=== PATIENT | male | born 1945 | race Caucasian/White ===

== ENCOUNTER 2018-05-12 11:42 | Emergency (ER) | payer OTHER ==
--- NOTE | 2018-05-12 13:42 | RAD REPORT ---
EXAM DESCRIPTION: CT - Head Brain Wo Cont - 05/12/2018 1:32 pm CLINICAL HISTORY: Headache COMPARISON: None. TECHNIQUE: Computed axial tomography of the head was obtained. IV contrast was not requested. All CT scans are performed using dose optimization technique as appropriate and may include automated exposure control or mA/KV adjustment according to patient size. FINDINGS: An intracranial bleed is not seen . Mild low-density areas within periventricular deep wh ite matter likely represent ischemic changes secondary to small vessel disease The ventricles are normal in caliber. No extra-axial fluid collection is noted. Fluid within the sinuses/ mastoids is not seen. Minimal mucoperiosteal thickening involves the spheno id sinus IMPRESSION: No acute intracranial abnormality is seen. If patient's symptoms persist MRI of the bra in would be recommended.
[2018-05-12] MEDS ORDERED: KETOROLAC 10 MG TAB PO ONE (14:00)
--- NOTE | 2018-05-12 15:10 | ER ---
Nurse's Notes [facility] Name: Louie Goss Age: 73 yrs Sex: Male : 1945 Arrival Date: 05/12/2018 Time: 11:43 Bed 12 Private MD: Diagnosis: Headache;Myalgia Presentation: 05/12 11:56 Presenting complaint: Patient states: i have this pain on my L ear for 3 days now and hj it hurts on my L head area and back of my ear and neck; and also my hearing aid broke down on me; denies ear discharges;denies trauma to the area. Transition of care: patient was not received from another setting of care. Onset of symptoms was May 12, 2018. Risk Assessment: Do you want to hurt yourself or someone else? Patient reports no desire to harm self or others. Initial Sepsis Screen: Does the patient meet any 2 criteria? No. Patient's initial sepsis screen is negative. Does the patient have a suspected source of infection? No. Patient's initial sepsis screen is negative. Care prior to arrival: None. 11:56 Method Of Arrival: Ambulatory 11:56 Acuity: DEVIN 4 hj Triage Assessment: 11:59 Headache History: Denies prior headaches. General: Appears in no apparent distress. hj uncomfortable, Behavior is calm, cooperative, appropriate for age. Pain: Complains of pain in left ear Pain currently is 10 out of 10 on a pain scale. Pain began 2-3 days ago. Also complains of. 12:00 Neuro: Level of Consciousness is awake, alert, obeys commands, Oriented to person, hj place, time, situation, Appropriate for age. Historical: - Allergies: 12:00 NKA; hj - Home Meds: 12:00 atenolol 100 mg Oral tab 1 tab once daily [Active]; clopidogrel 75 mg Oral tab 1 tab hj once daily [Active]; isosorbide mononitrate 60 mg Oral Tb24 1 tab once daily [Active]; Nexium 22.3MG Oral 1 cap once daily [Active]; pravastatin 40 mg Oral tab 1 tab once daily [Active]; - PMHx: 12:00 CAD; hj - PSHx: 12:00 Heart stents; Appendectomy; hj - Immunization history:: Adult Immunizations up to date. - Social history:: Smoking status: Patient/guardian denies using tobacco, Patient/guardian denies using alcohol. - Ebola Screening: : Patient negative for fever greater than or equal to 101.5 degrees Fahrenheit, and additional compatible Ebola Virus Disease symptoms Patient denies exposure to infectious person Patient denies travel to an Ebola-affected area in the 21 days before illness onset. Screenin:58 Abuse screen: Denies threats or abuse. Denies injuries from another. Nutritional hj screening: No deficits noted. Tuberculosis screening: No symptoms or risk factors identified. Fall Risk None identified. Assessment: 12:33 General: Appears in no apparent distress. Behavior is calm, cooperative. Pain: Pain hb currently is 10 out of 10 on a pain scale. Neuro: Level of Consciousness is awake, alert, obeys commands, Oriented to person, place, time, situation. Cardiovascular: Capillary refill < 3 seconds Patient's skin is warm and dry. Respiratory: Airway is patent Respiratory effort is even, unlabored, Respiratory pattern is regular, symmetrical. GI: No signs and/or symptoms were reported involving the gastrointestinal system. : No signs and/or symptoms were reported regarding the genitourinary system. EENT: Reports left ear pain. Derm: Skin is intact, is healthy with good turgor. Musculoskeletal: Reports left sided neck pain. 13:45 Reassessment: Patient appears in no apparent distress at this time. Patient and/or hb family updated on plan of care and expected duration. Pain level reassessed. Patient is alert, oriented x 3, equal unlabored respirations, skin warm/dry/pink. 14:45 Reassessment: Patient appears in no apparent distress at this time. No changes from hb previously documented assessment. Patient and/or family updated on plan of care and expected duration. Pain level reassessed. Patient is alert, oriented x 3, equal unlabored respirations, skin warm/dry/pink. 15:42 Reassessment: Patient appears in no apparent distress at this time. Patient and/or hb family updated on plan of care and expected duration. Pain level reassessed. Patient is alert, oriented x 3, equal unlabored respirations, skin warm/dry/pink. Vital Signs: 12:00 BP 142 / 72; Pulse 56; Resp 18; Temp 97.4(O); Pulse Ox 98% on R/A; Weight 111.58 kg; hj Height 5 ft. 10 in. (177.80 cm); Pain 10/10; 14:00 BP 136 / 76; Pulse 58; Resp 16; Pulse Ox 99% on R/A; hb 12:00 Body Mass Index 35.30 (111.58 kg, 177.80 cm) ED Course: 11:43 Patient arrived in ED. as 11:58 Triage completed. hj 11:59 Arm band placed on left wrist. hj 12:00 Patient has correct armband on for positive identification. Bed in low position. Call light in reach. Side rails up X 1. 12:01 Eduin Hawley, RN is Primary Nurse. hj 12:09 Luiz Casillas MD is Attending Physician. kdr 13:32 CT Head Brain wo Cont In Process Unspecified. EDMS 15:42 No provider procedures requiring assistance completed. Patient did not have IV access hb during this emergency room visit. Administered Medications: 13:25 Drug: TORadol 10 mg Route: PO; hb 15:42 Follow up: Response: Pain is decreased hb Outcome: 15:08 Discharge ordered by . kdr 15:42 Discharged to home ambulatory. hb 15:42 Condition: stable 15:42 Discharge instructions given to patient, Instructed on discharge instructions, follow up and referral plans. medication usage, Demonstrated understanding of instructions, follow-up care, medications, Prescriptions given X 3. 15:43 Patient left the ED. hb Signatures: Dispatcher [employer] EDID Luiz Casillas MD MD kdr Molly Glover as Eduin Hawley RN RN Dayanna Gonzalez RN RN hb Corrections: (The following items were deleted from the chart) 12:02 11:56 Presenting complaint: Patient states: i have this pain on my L ear for 3 days now hj and it hurts on my L head area and back of my ear and neck; and also my hearing broke down on me; denies ear discharges; hj 12:02 12:00 Pulse 56bpm; Resp 18bpm; Pulse Ox 98% RA; Temp 97.4F Oral; 111.58 kg; Height 5 hj ft. 10 in.; BMI: 35.3; Pain 10/10; hj
--- NOTE | 2018-05-12 15:10 | EDPHYS ---
Physician Documentation [facility] Name: Louie Goss Age: 73 yrs Sex: Male : 1945 Arrival Date: 05/12/2018 Time: 11:43 Bed 12 Private MD: ED Physician Luiz Casillas HPI: 05/12 15:02 This 73 yrs old Male presents to ER via Ambulatory with complaints of kdr Headache, Neck Pain, >24Hrs Old, Ear Pain. 15:02 The patient complains of pain to the left temporal area, left occipital area and left kdr base of the skull. The patient describes the headache as aching, constant, a pressure, unrelenting, waxing and waning. Onset: The symptoms/episode began/occurred gradually. 15:03 Associated signs and symptoms: The patient has no apparent associated signs or kdr symptoms. Severity of symptoms: At its worst the pain was moderate, in the emergency department the pain is unchanged. Headache History: Other Has not had a headache like this previously and it has been persistent. The symptoms are alleviated by nothing. the symptoms are aggravated by nothing. The patient has not experienced similar symptoms in the past, Has had very minor versions of this in the past nut not like this. The patient has not recently seen a physician. Historical: - Allergies: 12:00 NKA; hj - Home Meds: 12:00 atenolol 100 mg Oral tab 1 tab once daily [Active]; clopidogrel 75 mg Oral tab 1 tab hj once daily [Active]; isosorbide mononitrate 60 mg Oral Tb24 1 tab once daily [Active]; Nexium 22.3MG Oral 1 cap once daily [Active]; pravastatin 40 mg Oral tab 1 tab once daily [Active]; - PMHx: 12:00 CAD; hj - PSHx: 12:00 Heart stents; Appendectomy; hj - Immunization history:: Adult Immunizations up to date. - Social history:: Smoking status: Patient/guardian denies using tobacco, Patient/guardian denies using alcohol. - Ebola Screening: : Patient negative for fever greater than or equal to 101.5 degrees Fahrenheit, and additional compatible Ebola Virus Disease symptoms Patient denies exposure to infectious person Patient denies travel to an Ebola-affected area in the 21 days before illness onset. ROS: 15:03 Constitutional: Negative for fever, chills, and weight loss, Eyes: Negative for injury, kdr pain, redness, and discharge, ENT: Negative for injury, pain, and discharge, Neck: Negative for injury, pain, and swelling, Cardiovascular: Negative for chest pain, palpitations, and edema, Respiratory: Negative for shortness of breath, cough, wheezing, and pleuritic chest pain, Abdomen/GI: Negative for abdominal pain, nausea, vomiting, diarrhea, and constipation, Back: Negative for injury and pain, : Negative for injury, bleeding, discharge, and swelling, MS/Extremity: Negative for injury and deformity, Skin: Negative for injury, rash, and discoloration, Psych: Negative for depression, anxiety, suicide ideation, homicidal ideation, and hallucinations, Allergy/Immunology: Negative for hives, rash, and allergies, Endocrine: Negative for neck swelling, polydipsia, polyuria, polyphagia, and marked weight changes, Hematologic/Lymphatic: Negative for swollen nodes, abnormal bleeding, and unusual bruising. 15:03 Neuro: Positive for headache, Negative for altered mental status, dizziness, gait disturbance, numbness, seizure activity, speech changes, syncope, near syncope, tingling, tinnitus, tremor, visual changes, weakness, acute changes. Exam: 15:03 Constitutional: This is a well developed, well nourished patient who is awake, alert, kdr and in no acute distress. Head/Face: Normocephalic, atraumatic. Eyes: Pupils equal round and reactive to light, extra-ocular motions intact. Lids and lashes normal. Conjunctiva and sclera are non-icteric and not injected. Cornea within normal limits. Periorbital areas with no swelling, redness, or edema. ENT: Nares patent. No nasal discharge, no septal abnormalities noted. Tympanic membranes are normal and external auditory canals are clear. Oropharynx with no redness, swelling, or masses, exudates, or evidence of obstruction, uvula midline. Mucous membranes moist. Neck: Trachea midline, no thyromegaly or masses palpated, and no cervical lymphadenopathy. Supple, full range of motion without nuchal rigidity, or vertebral point tenderness. No Meningismus. Chest/axilla: Normal chest wall appearance and motion. Nontender with no deformity. No lesions are appreciated. Cardiovascular: Regular rate and rhythm with a normal S1 and S2. No gallops, murmurs, or rubs. Normal PMI, no JVD. No pulse deficits. Respiratory: Lungs have equal breath sounds bilaterally, clear to auscultation and percussion. No rales, rhonchi or wheezes noted. No increased work of breathing, no retractions or nasal flaring. Abdomen/GI: Soft, non-tender, with normal bowel sounds. No distension or tympany. No guarding or rebound. No evidence of tenderness throughout. Back: No spinal tenderness. No costovertebral tenderness. Full range of motion. Skin: Warm, dry with normal turgor. Normal color with no rashes, no lesions, and no evidence of cellulitis. MS/ Extremity: Pulses equal, no cyanosis. Neurovascular intact. Full, normal range of motion. Psych: Awake, alert, with orientation to person, place and time. Behavior, mood, and affect are within normal limits. 15:03 Neuro: Orientation: is normal, Mentation: is normal, Memory: is normal, Cranial nerves: grossly normal, Cerebellar function: is grossly normal, Motor: is normal, Sensation: is normal, Gait: not applicable Deep tendon reflexes are normal. Vital Signs: 12:00 BP 142 / 72; Pulse 56; Resp 18; Temp 97.4(O); Pulse Ox 98% on R/A; Weight 111.58 kg; Height 5 ft. 10 in. (177.80 cm); Pain 10/10; 14:00 BP 136 / 76; Pulse 58; Resp 16; Pulse Ox 99% on R/A; hb 12:00 Body Mass Index 35.30 (111.58 kg, 177.80 cm) MDM: 15:03 Data reviewed: vital signs, nurses notes, lab test result(s), radiologic studies. kdr Counseling: I had a detailed discussion with the patient and/or guardian regarding: the historical points, exam findings, and any diagnostic results supporting the discharge/admit diagnosis, radiology results. 15:08 Patient medically screened. kdr 05/12 12:59 Order name: CT Head Brain wo Cont; Complete Time: 15:02 kdr Administered Medications: 13:25 Drug: TORadol 10 mg Route: PO; hb 15:42 Follow up: Response: Pain is decreased hb Disposition: 05/12/18 15:08 Discharged to Home. Impression: Headache, Myalgia. - Condition is Stable. - Discharge Instructions: General Headache Without Cause, Pain Without a Known Cause. - Prescriptions for Ibuprofen 600 mg Oral Tablet - take 1 tablet by ORAL route every 6 hours As needed take with food; 15 tablet. Neurontin 300 mg Oral Capsule - take 1 capsule by ORAL route every 8 hours; 15 capsule. Medrol (Jer) 4 mg Oral Tablets, Dose Pack - take 1 tablet by ORAL route as directed - follow package instructions; 1 packet. - Medication Reconciliation Form, Thank You Letter form. - Follow up: Private Physician; When: 2 - 3 days; Reason: If symptoms return, Further diagnostic work-up, Recheck today's complaints, Continuance of care, Re-evaluation by your physician. - Problem is new. - Symptoms have improved. Signatures: Dispatcher [employer] EDMS Luiz Casillas MD MD [facility] Eduin Hawley RN RN Dayanna Gonzalez RN RN hb Corrections: (The following items were deleted from the chart) 15:43 15:08 05/12/2018 15:08 Discharged to Home. Impression: Headache; Myalgia. Condition is hb Stable. Forms are Medication Reconciliation Form, Thank You Letter, Antibiotic Education, Prescription Opioid Use. Follow up: Private Physician; When: 2 - 3 days; Reason: If symptoms return, Further diagnostic work-up, Recheck today's complaints, Continuance of care, Re-evaluation by your physician. Problem is new. Symptoms have improved. kdr
[2018-05-12 15:46] VITALS: TEMP 97.4
[2018-05-12 15:47] VITALS: BP 136/76; O2SAT 99
== END 2018-05-12 15:43 | disposition home or self-care (01) ==
LOC: ER 11:42
DX: R51 Headache (principal); M79.10 Myalgia, unspecified site; I25.10 Atherosclerotic heart disease of native coronary artery without angina pectoris
CPT/HCPCS: 70450; 99283

== ENCOUNTER 2018-05-26 10:03 | Inpatient (IN) | payer OTHER ==
[2018-05-26 10:51] LABS: Absolute Lymphocytes (CBC) 1.7 K/uL (0.7-4.9); Absolute Monocytes 1.3 K/uL (0.1-1.3); Absolute Neutrophil 7.5 K/uL (1.8-8.0); Basophils % 0.4 % (0-1.3); Eosinophils % 1.1 % (0-4.4); Hematocrit 49.5 % (39.6-49.0); Lymphocytes % 15.6 % (15.3-44.8); MPV 10.2 fL (7.6-11.3); Monocytes % 11.9 % (3.3-12.3); RBC Red Blood Cell Count 5.56 M/uL (4.33-5.43)
[2018-05-26 10:57] LABS: Protime INR 1.19
--- NOTE | 2018-05-26 10:59 | RAD REPORT ---
EXAM DESCRIPTION: CT - Head Brain Wo Cont - 05/26/2018 10:47 am CLINICAL HISTORY: Dizziness COMPARISON: May 12, 2018 TECHNIQUE: Computed axial tomography of the head was obtained. IV contrast was not requested. All CT scans are performed using dose optimization technique as appropriate and may include automated exposure control or mA/KV adjustment according to patient size. FINDINGS: An intracranial bleed is not seen . The ventricles are normal in caliber. No extra-axial fluid collection is noted. Mild to moderate low-density within periventricular, deep a nd subcortical white matter likely ischemic changes secondary to small vessel disease Fluid within the sinuses/ mastoids is not seen. IMPRESSION: No acute intracranial abnormality is seen. If patient's symptoms persist MRI of the bra in would be recommended.
--- NOTE | 2018-05-26 11:07 | RAD REPORT ---
EXAM DESCRIPTION: Vero Single View05/26/2018 11:01 am CLINICAL HISTORY: Chest pain COMPARISON: April 2017 FINDINGS: The lungs appear clear of acute infiltrate. The heart is mildly enlarged. Postsurgical changes involve the chest. IMPRESSION: No acute abnormalities displayed
[2018-05-26 11:52] LABS: ALT/SGPT 33 U/L (12-78); AST/SGOT 19 U/L (15-37); Albumin 3.7 g/dL (3.4-5.0); Alkaline Phosphatase 77 U/L (45-117); BUN Blood Urea Nitrogen 17 mg/dL (7-18); Bicarbonate 25 mmol/L (21-32); Bilirubin Direct 0.2 mg/dL (0-0.2); Bilirubin Total 0.9 mg/dL (0.2-1.0); Glucose Level 99 mg/dL (74-106); NT PRO-BNP 40 pg/mL (<125); Potassium 4.1 mmol/L (3.5-5.1); Protein, Total 7.4 g/dL (6.4-8.2); Sodium Level 139 mmol/L (136-145); Troponin (Emerg Dept Use Only) < 0.02 ng/mL (0.0-0.045)
--- NOTE | 2018-05-26 14:39 | RAD REPORT ---
EXAM DESCRIPTION: MRI - Brain Wo Cont - 05/26/2018 2:00 pm CLINICAL HISTORY: Weakness, dizziness, syncope COMPARISON: CT head same date TECHNIQUE: Sagittal T1-weighted images were obtained along with axial PD, heavily T2-weighted and T2 -FLAIR images. Axial DWI and ADC mapping sequences were also obtained along with coronal heavily T2-w eighted images. FINDINGS: No intracranial hemorrhage is present. No acute infarction changes are seen. No edema or s hift of midline structures. Mild to moderate atrophy changes are present. Ventriculomegaly is present with ventricles appearing out of proportion to the amount of volume loss. Correlation can be made wi th any normal pressure hydrocephalus clinical findings. Patient has chronic ischemic change scattered in the cerebral white matter and minimally in the brainstem. Garcia-matter/white matter junction is pr eserved. Signal voids are seen as a normal finding in the major intracranial vessels. A 15 millimeter mass is present at the left cerebellopontine angle. This is isointense to brain on T1 imaging, intermediate signal intensity on heavily T2 weighted imaging and hyperintense on T2 FLAIR. Signal extends into the internal auditory canal. Finding may reflect an acoustic neuroma or possibly meningioma. These are the 2 most common CP angle masses. No fatty components evident. Mastoid air cells and paranasal sinuses are clear. IMPRESSION: No acute infarction changes are present. No hemorrhage or acute intracranial finding. Ventriculomegaly out of proportion to volume loss. Correlation is needed with any normal pressure hyd rocephalus exam findings. 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
--- NOTE | 2018-05-26 16:17 | ER ---
Nurse's Notes [facility] Name: Louie Goss Age: 73 yrs Sex: Male : 1945 Arrival Date: 05/26/2018 Time: 10:05 Bed 18 Private MD: Diagnosis: Chest pain, unspecified Presentation: 05/26 10:08 Presenting complaint: Patient states: i got dizzy and i cant hardly walk, this has been hj going on for weeks, today, i started having chest pain, sharp non radiating, reports SOB;. Transition of care: patient was not received from another setting of care. Onset of symptoms was May 26, 2018. Risk Assessment: Do you want to hurt yourself or someone else? Patient reports no desire to harm self or others. Initial Sepsis Screen: Does the patient meet any 2 criteria? No. Patient's initial sepsis screen is negative. Does the patient have a suspected source of infection? No. Patient's initial sepsis screen is negative. Care prior to arrival: None. 10:08 Method Of Arrival: Ambulatory 10:08 Acuity: DEVIN 3 hj Historical: - Allergies: 10:10 NKA; hj - Home Meds: 11:14 pravastatin 40 mg Oral tab 1 tab once daily [Active]; isosorbide mononitrate 60 mg Oral em Tb24 1 tab once daily [Active]; atenolol 100 mg Oral tab 1 tab once daily [Active]; clopidogrel 75 mg Oral tab 1 tab once daily [Active]; Protonix 40 mg Oral TbEC 1 tab once daily [Active]; gabapentin 300 mg oral cap 1 cap 3 times per day [Active]; - PMHx: 10:10 CAD; hj - PSHx: 10:10 Heart stents; Appendectomy; hj - Immunization history:: Adult Immunizations up to date. - Social history:: Smoking status: unknown. - Ebola Screening: : Patient negative for fever greater than or equal to 101.5 degrees Fahrenheit, and additional compatible Ebola Virus Disease symptoms Patient denies exposure to infectious person Patient denies travel to an Ebola-affected area in the 21 days before illness onset No symptoms or risks identified at this time. Screenin:20 Abuse screen: Denies threats or abuse. Nutritional screening: No deficits noted. em Tuberculosis screening: No symptoms or risk factors identified. Fall Risk None identified. Assessment: 10:11 Pain: Pain does not radiate. Pain began today. hj 10:20 General: Appears in no apparent distress. comfortable, Behavior is calm, cooperative, em Denies fever. Neuro: Level of Consciousness is awake, alert, obeys commands, Overhead Crane Inspector are equal bilaterally Moves all extremities. Speech is normal, Reports dizziness, since about 1 month weakness Denies paresthesias numbness headache. Cardiovascular: Heart tones S1 S2 present Capillary refill < 3 seconds Patient's skin is warm and dry. Respiratory: Airway is patent Respiratory effort is even, unlabored, Respiratory pattern is regular, symmetrical, Breath sounds are clear bilaterally. Denies cough. GI: Patient currently denies nausea, vomiting. Derm: Skin is intact, is healthy with good turgor, Skin is pink, warm \T\ dry. Musculoskeletal: Capillary refill < 3 seconds, Range of motion: intact in all extremities. 10:35 Reassessment: I agree with previous assessment. hb 12:00 Reassessment: Patient appears in no apparent distress at this time. Patient and/or em family updated on plan of care and expected duration. Pain level reassessed. Patient is alert, oriented x 3, equal unlabored respirations, skin warm/dry/pink. family at bedside. 13:30 Reassessment: Patient appears in no apparent distress at this time. Patient and/or em family updated on plan of care and expected duration. Pain level reassessed. Patient is alert, oriented x 3, equal unlabored respirations, skin warm/dry/pink. wheeled to CT. 14:12 Reassessment: Patient appears in no apparent distress at this time. Patient and/or em family updated on plan of care and expected duration. Pain level reassessed. Patient is alert, oriented x 3, equal unlabored respirations, skin warm/dry/pink. Patient states feeling better. Patient states symptoms have improved. 16:38 Reassessment: Patient appears in no apparent distress at this time. Patient and/or iw family updated on plan of care and expected duration. Pain level reassessed. Patient is alert, oriented x 3, equal unlabored respirations, skin warm/dry/pink. warm blankets given, call light within reach, awaiting room assignment. 17:40 Reassessment: Patient appears in no apparent distress at this time. ambulated to em restroom with assistance, shuffling gate noted, tolerated well pending room assignment. Vital Signs: 10:10 BP 130 / 87; Pulse 84; Resp 18; Temp 98.2(TE); Pulse Ox 95% on R/A; Weight 113.4 kg; hj Height 5 ft. 10 in. (177.80 cm); 12:21 BP 156 / 93; Pulse 81; Resp 18; Pulse Ox 99% on R/A; em 13:00 BP 155 / 94; Pulse 81; Resp 20; Pulse Ox 97% on R/A; em 14:15 BP 153 / 91; Pulse 71; Resp 18; Pulse Ox 95% on R/A; em 15:00 BP 144 / 82; Pulse 75; Resp 17; Pulse Ox 95% on R/A; dh3 16:00 BP 165 / 97; Pulse 76; Resp 17; Pulse Ox 96% on R/A; dh3 17:00 BP 141 / 71; Pulse 87; Resp 18; Pulse Ox 97% on R/A; dh3 18:07 BP 132 / 85; Pulse 88; Resp 18; Pulse Ox 95% on R/A; em 10:10 Body Mass Index 35.87 (113.40 kg, 177.80 cm) ED Course: 10:05 Patient arrived in ED. as 10:09 Triage completed. hj 10:10 Arm band placed on right wrist. hj 10:17 Ward Negro LVN is Primary Nurse. em 10:18 Efrain Vogel PA is PHCP. [facility] 10:18 Luiz Casillas MD is Attending Physician. [facility] 10:20 Patient has correct armband on for positive identification. Placed in gown. Bed in low em position. Call light in reach. Side rails up X2. Adult w/ patient. monitor worker on. Pulse ox on. NIBP on. 10:24 EKG done, by experimental technician. reviewed by Luiz Casillas MD. dt2 10:25 Patient maintains SpO2 saturation greater than 95% on room air. em 10:27 Inserted saline lock: 20 gauge in right hand, using aseptic technique. Blood collected. dh3 10:37 Patient moved to MS. sj 10:38 Initial lab(s) drawn, by ma, sent to lab. 3 10:47 CT completed. Patient tolerated procedure well. Patient moved back from MS. nj 10:47 CT Head Brain wo Cont In Process Unspecified. EDMS 11:00 X-ray completed. Portable x-ray completed in exam room. Patient tolerated procedure jb2 well. 11:01 XRAY Chest (1 view) In Process Unspecified. EDMS 11:24 Lab(s) recollected, by me, sent to lab. by venipuncture 21G to left hand. 3 13:48 MRI - Brain Wo Cont In Process Unspecified. EDMS 16:16 Saji Diaz DO is Hospitalizing Provider. [facility] 18:15 No provider procedures requiring assistance completed. Patient admitted, IV remains in em place. Administered Medications: 16:30 Drug: Aspirin Chewable Tablet 324 mg Route: PO; iw 18:13 Follow up: Response: No adverse reaction em Outcome: 16:17 Decision to Hospitalize by Provider. [facility] 18:15 Admitted to Med/surg accompanied by tech, via wheelchair, room 217, with chart, Report em called to ROSA Mckeon 18:15 Condition: good 18:15 Instructed on the need for admit, Demonstrated understanding of instructions. 18:35 Patient left the ED. em Signatures: Dispatcher [employer] EDMS Efrain Vogel PA PA [facility] Leonel Cm jb2 Sarai Jordan Edgar, IN SHOP SERVICE TECHNICIAN IN SHOP SERVICE TECHNICIAN em Molly Glover Irene, RN ROSA Eduin Hawley RN ROSA Dayanna Gonzalez, ROSA LEE Amador Posey Deanna 3 Jennifer Barroso2 Corrections: (The following items were deleted from the chart) 10:12 10:10 Pulse 84bpm; Resp 18bpm; Pulse Ox 95% RA; Temp 98.2F Temporal; 113.4 kg; Height 5 hj ft. 10 in.; BMI: 35.8; hj
--- NOTE | 2018-05-26 16:17 | EDPHYS ---
Physician Documentation [facility] Name: Louie Goss Age: 73 yrs Sex: Male : 1945 Arrival Date: 05/26/2018 Time: 10:05 Bed 18 Private MD: ED Physician Luiz Casillas HPI: 05/26 10:34 This 73 yrs old Male presents to ER via Ambulatory with complaints of Chest jmm Pain, Dizziness. 10:34 The patient or guardian reports chest pain that is located primarily in the substernal jmm area. Onset: gradually, at 08:00. The pain does not radiate. Associated signs and symptoms: Pertinent positives: dizziness. The chest pain is described as aching, sharp. Duration: The patient or guardian reports a single episode, that is now resolved. Modifying factors: the symptoms are aggravated by exertion. This is a 73 year old male with a history of CAD, DM that presents to the ED with complaints chest pain beginning this morning at approx 0800. Pain was localized to the mid chest. Does not radiate. Pain is exertional. Patient is now resolved. Family states the patient has had ongoing dizziness for the past month worsening over the past 2 days with difficulty walking. family denies slurred speech. Denies unilateral weakness. . Historical: - Allergies: 10:10 NKA; hj - Home Meds: 11:14 pravastatin 40 mg Oral tab 1 tab once daily [Active]; isosorbide mononitrate 60 mg Oral em Tb24 1 tab once daily [Active]; atenolol 100 mg Oral tab 1 tab once daily [Active]; clopidogrel 75 mg Oral tab 1 tab once daily [Active]; Protonix 40 mg Oral TbEC 1 tab once daily [Active]; gabapentin 300 mg oral cap 1 cap 3 times per day [Active]; - PMHx: 10:10 CAD; hj - PSHx: 10:10 Heart stents; Appendectomy; hj - Immunization history:: Adult Immunizations up to date. - Social history:: Smoking status: unknown. - Ebola Screening: : Patient negative for fever greater than or equal to 101.5 degrees Fahrenheit, and additional compatible Ebola Virus Disease symptoms Patient denies exposure to infectious person Patient denies travel to an Ebola-affected area in the 21 days before illness onset No symptoms or risks identified at this time. ROS: 10:34 Constitutional: Negative for fever, chills, and weight loss. [facility] 10:34 Respiratory: Negative for shortness of breath, cough, wheezing, and pleuritic chest pain, Abdomen/GI: Negative for abdominal pain, nausea, vomiting, diarrhea, and constipation, Back: Negative for injury and pain, MS/Extremity: Negative for injury and deformity, Skin: Negative for injury, rash, and discoloration. 10:34 Cardiovascular: Positive for chest pain. 10:34 Neuro: Positive for dizziness. 10:34 All other systems are negative. Exam: 10:34 Constitutional: This is a well developed, well nourished patient who is awake, alert, jmm and in no acute distress. Head/Face: atraumatic. Eyes: EOMI, no conjunctival erythema appreciated ENT: Moist Mucus Membranes Neck: Trachea midline, Supple Chest/axilla: Normal chest wall appearance and motion. Cardiovascular: Regular rate and rhythm. No edema appreciated Respiratory: Normal respirations, no respiratory distress appreciated Abdomen/GI: Non distended, soft Skin: General appearance color normal MS/ Extremity: Moves all extremities, no obvious deformities appreciated, no edema noted to the lower extremities Neuro: Awake and alert, normal gait Psych: Behavior is normal, Mood is normal, Patient is cooperative and pleasant 10:34 Neuro: Orientation: is normal, Mentation: is normal, Memory: is normal. 14:27 ECG was reviewed by the Attending Physician. [facility] Vital Signs: 10:10 BP 130 / 87; Pulse 84; Resp 18; Temp 98.2(TE); Pulse Ox 95% on R/A; Weight 113.4 kg; hj Height 5 ft. 10 in. (177.80 cm); 12:21 BP 156 / 93; Pulse 81; Resp 18; Pulse Ox 99% on R/A; em 13:00 BP 155 / 94; Pulse 81; Resp 20; Pulse Ox 97% on R/A; em 14:15 BP 153 / 91; Pulse 71; Resp 18; Pulse Ox 95% on R/A; em 15:00 BP 144 / 82; Pulse 75; Resp 17; Pulse Ox 95% on R/A; dh3 16:00 BP 165 / 97; Pulse 76; Resp 17; Pulse Ox 96% on R/A; dh3 17:00 BP 141 / 71; Pulse 87; Resp 18; Pulse Ox 97% on R/A; dh3 18:07 BP 132 / 85; Pulse 88; Resp 18; Pulse Ox 95% on R/A; em 10:10 Body Mass Index 35.87 (113.40 kg, 177.80 cm) MDM: 10:34 Patient medically screened. [facility] 16:14 The patient was given aspirin in the Emergency Department. Data reviewed: vital signs, [facility] lab test result(s), EKG, radiologic studies, CT scan, MRI, plain films. ED course: I discussed the patient with Dr. Diaz whom accepted admission. . 05/26 10:33 Order name: Basic Metabolic Panel; Complete Time: 11:58 05/26 10:33 Order name: CBC with Diff; Complete Time: 10:58 05/26 10:33 Order name: LFT's; Complete Time: 11:59 05/26 10:33 Order name: Magnesium; Complete Time: 11:59 05/26 10:33 Order name: NT PRO-BNP; Complete Time: 11:59 05/26 10:33 Order name: PT-INR; Complete Time: 11:01 05/26 10:12 Order name: EKG - Nurse/Tech; Complete Time: 10:30 05/26 10:33 Order name: Troponin (emerg Dept Use Only); Complete Time: 11:59 05/26 10:33 Order name: XRAY Chest (1 view); Complete Time: 11:10 05/26 10:33 Order name: EKG; Complete Time: 10:34 05/26 10:35 Order name: CT Head Brain wo Cont; Complete Time: 11:01 [facility] 05/26 12:06 Order name: MRI - Brain Wo Cont; Complete Time: 14:45 [facility] 05/26 15:55 Order name: Diet Mech. Soft (chopped); Complete Time: 15:55 05/26 10:33 Order name: Cardiac monitoring; Complete Time: 10:43 05/26 10:33 Order name: IV Saline Lock; Complete Time: 10:43 05/26 10:33 Order name: Labs collected and sent; Complete Time: 10:43 05/26 10:33 Order name: O2 Per Protocol; Complete Time: 10:43 05/26 10:33 Order name: O2 Sat Monitoring; Complete Time: 10:43 em 05/26 11:01 Order name: Labs - recollect needed; Complete Time: 11:24 hb EC:27 Rate is 83 beats/min. Rhythm is regular. QRS [place] is Normal. CO interval is normal. QRS jmm interval is normal. QT interval is normal. No Q waves. T waves are Normal. No ST changes noted. Administered Medications: 16:30 Drug: Aspirin Chewable Tablet 324 mg Route: PO; 18:13 Follow up: Response: No adverse reaction em Disposition: 18:45 Co-signature as Attending Physician, Luiz Casillas MD I agree with the assessment and kdr plan of care. Disposition: 05/26/18 16:17 Hospitalization ordered by Saji Diaz for Observation. Preliminary diagnosis is Chest pain, unspecified. - Bed requested for Telemetry/MedSurg (observation). - Status is Observation. em - Condition is Stable. - Problem is new. - Symptoms have improved. UTI on Admission? No Signatures: Dispatcher [employer] EDMS Luiz Casillas MD MD [facility] Efrain Vogel PA PA [facility] Ward Negro, AIR CONDITIONING MANAGER AIR CONDITIONING MANAGER em Kay Wallis, ROSA LEE Bill Glover em1 Eduin Hawley, RN ROSA Dayanna Gonzalez, RN RN Corrections: (The following items were deleted from the chart) 18:00 16:17 Hospitalization Ordered by Saji Diaz DO for Observation. Preliminary em1 diagnosis is Chest pain, unspecified. Bed requested for Telemetry/MedSurg (observation). Status is Observation. Condition is Stable. Problem is new. Symptoms have improved. UTI on Admission? No. jmm 18:35 18:00 05/26/2018 16:17 Hospitalization Ordered by Saji Diaz DO for Observation. em Preliminary diagnosis is Chest pain, unspecified. Bed requested for Telemetry/MedSurg (observation). Status is Observation. Condition is Stable. Problem is new. Symptoms have improved. UTI on Admission? No. em1
[2018-05-26] MEDS ORDERED: ASPIRIN 81 MG CHEWABLE TABLET ONE (16:28)
--- NOTE | 2018-05-26 16:58 | P.HP ---
Certification for Inpatient Patient admitted to: Observation With expected LOS: <2 Midnights Patient will require the following post-hospital care: Home Health Services Practitioner: I am a practitioner with admitting privileges, knowledge of patient current condition, hospital course, and medical plan of care. Services: Services provided to patient in accordance with Admission requirements found in Title 42 Section 412.3 of the Code of Federal Regulations Patient History Date of Service: 05/26/18 Primary Care Provider: [facility] Reason for admission: Chest pain History of Present Illness: 73-year-old male presented to the emergency room with chest pain. Patient with history of CAD with prior CABG, hypertension, hyperlipidemia, and obstructive sleep apnea. Patient reports chest pain starting at rest and early this morning. It was mainly to the center of the chest. No radiation noted. He has reported some dizziness over the past month. He did have some difficulty with ambulation today. Patient denied any significant nausea, vomiting, fever or chills. Patient came to the ER for further evaluation. In the ER patient evaluated. Blood pressures were slightly elevated upon arrival. White count 10.6, hemoglobin 16. Creatinine 0.9. Initial troponin unremarkable. No significant EKG changes noted. Chest x-ray unremarkable. CT scan showed no acute findings. MRI brain showed no acute findings but ventriculomegaly out of proportion to volume loss was noted. There was also a 15 mm left cerebellopontine mass likely acoustic neuroma or possible meningioma noted. Patient was admitted for observation. When I saw the patient ER, he was without any significant chest pain. Family at bedside. He last saw cardiology about a month ago in preparation for oral surgery. He was off Plavix 2 weeks prior to surgery. He is not taking Plavix since that time. Allergies No Known Allergies Allergy (Verified 04/24/15 10:16) Home medications list reviewed: Yes Home Medications: Atenolol [Tenormin*] 100 mg PO DAILY 08/18/13 Clopidogrel Bisulfate [Plavix*] 75 mg PO DAILY 08/18/13 Isosorbide King (Bid) [Ismo 10 mg Tab*] 60 mg PO DAILY 08/18/13 Pravastatin [Pravachol*] 40 mg PO DAILY 08/18/13 Pantoprazole Sodium [Protonix] 40 mg PO DAILY #30 tablet. 04/25/15 - Past Medical/Surgical History Diabetic: No -: HTN -: Hyperlipidmeia -: CAD with prior CABG -: Thoracic Myofascial Strain- 03/19/13 -: Restless leg syndrome -: Sleep Apnea-uses CPAP at home. -: CABG-1999 -: Cardiac stents Psychosocial/ Personal History: Patient is a - Family History Family History: Reviewed- Non-Contributory - Social History Smoking Status: Former smoker Alcohol use: No CD- Drugs: No Caffeine use: Yes Place of Residence: Home Review of Systems General: Weakness, As per HPI Eyes: Unremarkable ENT: Unremarkable Respiratory: Unremarkable Cardiovascular: Chest Pain, Light Headedness, As per HPI Gastrointestinal: Unremarkable Genitourinary: Unremarkable Musculoskeletal: Unremarkable Integumentary: Unremarkable Neurological: Weakness, As per HPI Lymphatics: Unremarkable Physical Examination - Physical Exam General: Alert, In no apparent distress, Oriented x3, Cooperative HEENT: Atraumatic, Normocephalic, Mucous membr. moist/pink Neck: Supple, No Thyromegaly Respiratory: Clear to auscultation bilaterally, Normal air movement Cardiovascular: Normal pulses, Regular rate/rhythm Gastrointestinal: Normal bowel sounds, Soft and benign, Non-distended, No tenderness, No masses, No rebound, No guarding Musculoskeletal: No erythema, No tenderness, No warmth Integumentary: No tenderness/swelling, No erythema, No warmth, No cyanosis Neurological: Normal speech, Normal strength at 5/5 x4 extr, Normal tone, Normal affect - Studies Laboratory Data (last 24 hrs) 05/26/18 11:21: Sodium 139, Potassium 4.1, BUN 17, Creatinine 0.99, Glucose 99, Magnesium 2.0, Total Bilirubin 0.9, AST 19, ALT 33, Alkaline Phosphatase 77 05/26/18 10:27: PT 14.0 H, INR 1.19 05/26/18 10:27: WBC 10.6, Hgb 16.8, Hct 49.5 H, Plt Count 194 Assessment and Plan - Plan Impression: Chest pain with history of CAD and CABG Hypertension Dizziness likely related to MRI showing ventriculomegaly and 15 mm left cerebellopontine mass likely acoustic neuroma verses meningioma Hyperlipidemia Obstructive sleep apnea Recent oral surgery GERD Plan: Chest pain with history of CAD and CABG: Patient will be admitted for observation. Will continue to monitor on telemetry. Will monitor cardiac enzymes. Will obtain echocardiogram to further evaluate. Will restart his Plavix as this has been held for several weeks. Will continue with beta- baron therapy, statin medication and DVT prophylaxis. Cardiology consulted for further recommendation. Anticipate discharge in the next 24 hr if improved and okay with cardiology. Hypertension: Will start metoprolol. Will need to obtain and verify home medication. Dizziness likely related to MRI showing ventriculomegaly and 15 mm left cerebellopontine mass likely acoustic neuroma verses meningioma: This is a new finding. Recommend for neurology evaluation as an outpatient to further monitor and address. Patient may require further intervention Hyperlipidemia: Continue with statin medication. Will monitor fasting lipid panel. Obstructive sleep apnea: Continue with CPAP at night. Recent oral surgery: Will continue with a soft diet GERD: Will provide medication Discharge Plan: Home Plan to discharge in: 24 Hours - Advance Directives Does patient have a Living Will: Yes Does patient have a Durable POA for Healthcare: Yes - Code Status/Comfort Care Code Status Assessed: Yes (Patient is full code.) Time Spent Managing Pts Care (In Minutes): 55
[2018-05-26] MEDS ORDERED: MORPHINE 2 MG/ML SYR IV PRN (18:32)
[2018-05-26] MEDS ORDERED: NITROGLYCERIN 0.4 MG/TAB SL PRN (18:32)
[2018-05-26] MEDS ORDERED: ACETAMINOPHEN 500 MG TAB PO PRN (18:32)
[2018-05-26] MEDS ORDERED: HYDRALAZINE HCL 20 MG/ML VIAL IV PRN (18:32)
[2018-05-26 18:43] VITALS: BMI 32.1
[2018-05-26] MEDS: METOPROLOL TAR 25 MG TAB PO SCH (19:18)
[2018-05-26 19:42] LABS: CKMB Creatine Kinase MB < 1.0 ng/mL (0.3-3.6); Creatine Phosphokinase 52 U/L (39-308); Troponin I < 0.02 ng/mL (0.0-0.045)
[2018-05-26] MEDS ORDERED: ATORVASTATIN 40 MG TAB PO SCH (21:00)
[2018-05-26 21:21] LABS: Urine Appearance CLEAR; Urine Bilirubin NEGATIVE (NEG); Urine Blood NEGATIVE (NEG); Urine Color YELLOW; Urine Glucose NEGATIVE (NEG); Urine Protein TRACE (NEG); Urine Specific Gravity 1.025 (1.005-1.030); Urine pH 5.5 (5.0-7.0)
[2018-05-26 21:33] LABS: Urine Microscopic Reflex ORDER UMIC
[2018-05-26 22:02] LABS: Urine Bacteria <20 /HPF (NONE SEEN); Urine Culture Reflex Order NOT NEEDED; Urine Mucus HEAVY /HPF (NONE SEEN); Urine RBC <5 /HPF (NONE SEEN)
[2018-05-26] MEDS: ENOXAPARIN 40 MG/0.4 ML SQ SCH (22:33)
[2018-05-27 04:43] LABS: Absolute Lymphocytes (CBC) 1.5 K/uL (0.7-4.9); Absolute Monocytes 1.2 K/uL (0.1-1.3); Absolute Neutrophil 6.9 K/uL (1.8-8.0); Basophils % 0.2 % (0-1.3); Eosinophils % 1.6 % (0-4.4); Hematocrit 44.3 % (39.6-49.0); Lymphocytes % 15.6 % (15.3-44.8); MPV 9.5 fL (7.6-11.3); Monocytes % 12.3 % (3.3-12.3); RBC Red Blood Cell Count 4.96 M/uL (4.33-5.43)
[2018-05-27 04:56] LABS: CKMB Creatine Kinase MB < 1.0 ng/mL (0.3-3.6); Creatine Phosphokinase 49 U/L (39-308); Troponin I < 0.02 ng/mL (0.0-0.045)
[2018-05-27 05:16] LABS: Magnesium 1.9 mg/dL (1.8-2.4); Potassium 3.8 mmol/L (3.5-5.1)
[2018-05-27 05:22] LABS: Thyroid Stimulating Hormone 4.15 uIU/mL (0.360-3.740)
[2018-05-27] MEDS ORDERED: POTASSIUM 25 MEQ EFFERV TAB PO ONE (05:28)
[2018-05-27] MEDS ORDERED: PNEUMOCOCCAL VACCINE 0.5 ML IMVAC ONE (06:00)
[2018-05-27] MEDS: METOPROLOL TAR 25 MG TAB PO SCH (06:13)
[2018-05-27 08:43] VITALS: O2SAT 94
[2018-05-27] MEDS: ENOXAPARIN 40 MG/0.4 ML SQ SCH (08:46)
[2018-05-27] MEDS ORDERED: FAMOTIDINE 20 MG TAB PO SCH (09:00)
[2018-05-27] MEDS ORDERED: FOLIC ACID 1 MG TABLET PO SCH (09:00)
[2018-05-27] MEDS ORDERED: CLOPIDOGREL 75 MG TABLET PO SCH (09:00)
--- NOTE | 2018-05-27 09:26 | P.PN ---
Subjective Date of Service: 05/27/18 Primary Care Provider: [facility] Chief Complaint: Chest pain Subjective: Other (No more chest pain noted. Patient still with gait and balance and shuffled gait. No noted incontinence. No decreased mental cognition.) Physical Examination - Vital Signs Temperature: 97.5 F Blood Pressure: 136/84 Pulse: 72 Respirations: 20 Pulse Ox (%): 93 - Physical Exam General: Alert, In no apparent distress, Oriented x3, Cooperative HEENT: Atraumatic Neck: Supple Respiratory: Clear to auscultation bilaterally, Normal air movement Cardiovascular: Normal pulses, Regular rate/rhythm Gastrointestinal: Normal bowel sounds, Soft and benign, Non-distended, No masses , No rebound, No guarding Musculoskeletal: No tenderness, No warmth Neurological: Normal speech, Normal strength at 5/5 x4 extr, Normal tone, Normal affect, Other (Shuffled gait noted. Patient requires assistance with ambulation) - Studies Laboratory Data (last 24 hrs) 05/26/18 11:21: Sodium 139, Potassium 4.1, BUN 17, Creatinine 0.99, Glucose 99, Magnesium 2.0, Total Bilirubin 0.9, AST 19, ALT 33, Alkaline Phosphatase 77 05/26/18 10:27: PT 14.0 H, INR 1.19 05/26/18 10:27: WBC 10.6, Hgb 16.8, Hct 49.5 H, Plt Count 194 Medications List Reviewed: Yes Assessment & Plan Discharge Plan: Transfer Plan to discharge in: 24 Hours Physician Review Additional Text: Impression: Chest pain with history of CAD and CABG Gait imbalance, Shuffled gait, and Dizziness related to MRI showing ventriculomegaly and 15 mm left cerebellopontine mass likely acoustic neuroma verses meningioma suspect normal-pressure hydrocephalus Hypertension Hyperlipidemia Obstructive sleep apnea Recent oral surgery GERD Plan: Chest pain with history of CAD and CABG: Patient without chest pain at this time. Cardiac enzymes unremarkable. Continue with current medication including beta-baron therapy, statin medication and DVT prophylaxis. Cardiology consulted to further evaluate. Suspect no need for further cardiac intervention at this time. Gait imbalance, Shuffled gait, and Dizziness related to MRI showing ventriculomegaly and 15 mm left cerebellopontine mass likely acoustic neuroma verses meningioma suspect normal-pressure hydrocephalus: This is a new finding and likely recently chronic. Patient has had symptoms for over a month. Gait and balance is worsening over time. Case discussed with Neurology. Patient at risk for fall and worsening of hydrocephalus. Due to current symptoms and clinical evaluation, Neurology recommends transfer to the [facility] or [facility] for Neurosurgery evaluation to further address and treat. Patient may require BUILDING MAINTENANCE SUPERINTENDENT shunt and/or further intervention of mass and hydrocephalus. Will initiate transfer. Await approval. Hypertension: Continue with metoprolol. Hyperlipidemia: Continue with statin medication. Obstructive sleep apnea: Continue with CPAP at night. Recent oral surgery: Will continue with a soft diet. Patient to follow up with oral surgery as an outpatient. GERD: Will provide medication Time Spent Managing Pts Care (In Minutes): 55
--- NOTE | 2018-05-27 15:44 | P.DS ---
Admission Date: 05/26/18 Discharge Date: 05/27/18 Primary Care Provider: [facility] Disposition: TRANSFER TO [facility] Discharge Condition: GOOD Reason for Admission: Chest pain Consultations: Cardiology-Dr. Quintanilla Procedures: CT head: COMPARISON: May 12, 2018 TECHNIQUE: Computed axial tomography of the head was obtained. IV contrast was not requested. All CT scans are performed using dose optimization technique as appropriate and may include automated exposure control or mA/KV adjustment according to patient size. FINDINGS: An intracranial bleed is not seen . The ventricles are normal in caliber. No extra-axial fluid collection is noted. Mild to moderate low-density within periventricular, deep and subcortical white matter likely ischemic changes secondary to small vessel disease Fluid within the sinuses/ mastoids is not seen. IMPRESSION: No acute intracranial abnormality is seen. If patient's symptoms persist MRI of the brain would be recommended. MRI Brain: COMPARISON: CT head same date TECHNIQUE: Sagittal T1-weighted images were obtained along with axial PD, heavily T2-weighted and T2-FLAIR images. Axial DWI and ADC mapping sequences were also obtained along with coronal heavily T2-weighted images. FINDINGS: No intracranial hemorrhage is present. No acute infarction changes are seen. No edema or shift of midline structures. Mild to moderate atrophy changes are present. Ventriculomegaly is present with ventricles appearing out of proportion to the amount of volume loss. Correlation can be made with any normal pressure hydrocephalus clinical findings. Patient has chronic ischemic change scattered in the cerebral white matter and minimally in the brainstem. Garcia-matter/white matter junction is preserved. Signal voids are seen as a normal finding in the major intracranial vessels. A 15 millimeter mass is present at the left cerebellopontine angle. This is isointense to brain on T1 imaging, intermediate signal intensity on heavily T2 weighted imaging and hyperintense on T2 FLAIR. Signal extends into the internal auditory canal. Finding may reflect an acoustic neuroma or possibly meningioma. These are the 2 most common CP angle masses. No fatty components evident. Mastoid air cells and paranasal sinuses are clear. IMPRESSION: No acute infarction changes are present. No hemorrhage or acute intracranial finding. Ventriculomegaly out of proportion to volume loss. Correlation is needed with any normal pressure hydrocephalus exam findings. 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 Medical Problem List: Chest pain with history of CAD and CABG Gait imbalance, Shuffled gait, and Dizziness related to MRI showing ventriculomegaly and 15 mm left cerebellopontine mass likely acoustic neuroma verses meningioma suspect normal-pressure hydrocephalus Hypertension Hyperlipidemia Obstructive sleep apnea Recent oral surgery GERD Brief History of Present Illness: 73-year-old male presented to the emergency room with chest pain. Patient with history of CAD with prior CABG, hypertension, hyperlipidemia, and obstructive sleep apnea. Patient reports chest pain starting at rest and early this morning. It was mainly to the center of the chest. No radiation noted. He has reported some dizziness over the past month. He did have some difficulty with ambulation today. Patient denied any significant nausea, vomiting, fever or chills. Patient came to the ER for further evaluation. In the ER patient evaluated. Blood pressures were slightly elevated upon arrival. White count 10.6, hemoglobin 16. Creatinine 0.9. Initial troponin unremarkable. No significant EKG changes noted. Chest x-ray unremarkable. CT scan showed no acute findings. MRI brain showed no acute findings but ventriculomegaly out of proportion to volume loss was noted. There was also a 15 mm left cerebellopontine mass likely acoustic neuroma or possible meningioma noted. Patient was admitted for observation. When I saw the patient ER, he was without any significant chest pain. Family at bedside. He last saw cardiology about a month ago in preparation for oral surgery. He was off Plavix 2 weeks prior to surgery. He is not taking Plavix since that time. Patient has reported increased gait disturbance over the past month. It has been getting worse. Some urinary incontinence noted. Hospital Course: Patient presented with chest pain. Patient with history of CAD and CABG. Cardiac enzymes unremarkable. No significant EKG changes noted. Patient was evaluated by Cardiology. No cardiac intervention was required. Patient also had reported gait imbalance, shuffled gait, dizziness and mild urinary incontinence. This has been ongoing for the past month. Gait and balance is getting worse. Case discussed with Neurology. MRI showed ventriculomegaly and 15 mm cerebellopontine mass likely acoustic neuroma verses meningioma. Findings were suspicious for normal pressure hydrocephalus. Since the patient is at risk for fall and worsening hydrocephalus, neurology recommended transfer to high level center for neuro surgical evaluation. Patient would likely require Neurosurgical evaluation and intervention. Case discussed with Neurosurgery at [facility]. Neuro surgery agrees with plan of care. Neurosurgery has accepted patient. Patient be transferred to [facility] for further evaluation and treatment. Patient with other medical problems including hypertension, hyperlipidemia, obstructive sleep apnea, recent oral surgery, and GERD. During the course of his stay atenolol was replaced with metoprolol. Patient will continue with current medication metoprolol 25 mg 1 pill twice daily, pravastatin 40 mg daily , Protonix 40 mg daily, isosorbide mononitrate 60 mg daily, and Plavix 40 mg daily. Further adjustment in medication can be done at [facility]. Vital Signs/Physical Exam: Temp Pulse Resp BP Pulse Ox 97.9 F 79 18 142/80 H 93 05/27/18 12:00 05/27/18 12:00 05/27/18 12:00 05/27/18 12:00 05/27/18 12:00 General: Alert, In no apparent distress, Oriented x3, Cooperative HEENT: Atraumatic Neck: Supple Respiratory: Clear to auscultation bilaterally, Normal air movement Cardiovascular: Normal pulses, Regular rate/rhythm Gastrointestinal: Normal bowel sounds, No tenderness, No masses, No rebound, No guarding Musculoskeletal: No tenderness, No warmth Neurological: Other (Patient with shuffled gait. Patient were acquired assistance for mobility), Abnormal gait Laboratory Data at Discharge: WBC 9.8 K/uL (4.3-10.9) 05/27/18 04:01 Hgb 15.3 g/dL (13.6-17.9) 05/27/18 04:01 Hct 44.3 % (39.6-49.0) 05/27/18 04:01 Plt Count 170 K/uL (152-406) 05/27/18 04:01 PT 14.0 SECONDS (9.5-12.5) H 05/26/18 10:27 INR 1.19 05/26/18 10:27 Sodium 141 mmol/L (136-145) 05/27/18 04:01 Potassium 3.8 mmol/L (3.5-5.1) 05/27/18 04:01 BUN 19 mg/dL (7-18) H 05/27/18 04:01 Creatinine 1.09 mg/dL (0.55-1.3) 05/27/18 04:01 Glucose 100 mg/dL (74-106) 05/27/18 04:01 Magnesium 1.9 mg/dL (1.8-2.4) 05/27/18 04:01 Total Bilirubin 0.9 mg/dL (0.2-1.0) 05/26/18 11:21 AST 19 U/L (15-37) 05/26/18 11:21 ALT 33 U/L (12-78) 05/26/18 11:21 Alkaline Phosphatase 77 U/L (45-117) 05/26/18 11:21 Troponin I < 0.02 ng/mL (0.0-0.045) 05/27/18 04:01 Triglycerides 129 mg/dL (<150) 05/27/18 04:01 Cholesterol 154 mg/dL (<200) 05/27/18 04:01 HDL Cholesterol 29 mg/dL (40-60) L 05/27/18 04:01 Cholesterol/HDL Ratio 5.31 05/27/18 04:01 Home Medications: Clopidogrel Bisulfate [Plavix*] 75 mg PO BEDTIME 08/18/13 Pravastatin [Pravachol*] 40 mg PO BEDTIME 08/18/13 Isosorbide Mononitrate [Ismo] 60 mg PO BEDTIME 05/26/18 Pantoprazole Sodium [Protonix] 40 mg PO BEDTIME 05/26/18 Metoprolol Tartrate [Lopressor*] 25 mg PO BID 6AM 6PM #60 tab 05/27/18 New Medications: Metoprolol Tartrate [Lopressor*] 25 mg PO BID 6AM 6PM #60 tab Patient Discharge Instructions: Patient be transferred to [facility] for further evaluation and treatment Diet: AHA Activity: Fall precautions Time spent managing pt's care (in minutes): 55
[2018-05-27 17:06] VITALS: BP 151/66; TEMP 99.4
[2018-05-27] MEDS ORDERED: ISOSORBIDE MONO SR 60 MG TAB PO SCH (21:00)
[2018-05-28] MEDS ORDERED: PANTOPRAZOLE 40MG TABLET PO SCH (06:30)
--- NOTE | 2018-05-28 14:01 | CON ---
Reason For Consultation: History of coronary artery disease, chest pain, and imbalance problems. History Of Present Illness: Mr. Goss is 73. He is very well known to me from previous office visits and admissions. He has a history of hypertension, dyslipidemia, status post multiple stents in the past. He came in really with mostly unsteadiness on his feet and loss of balance. He had some very minimal sharp chest pain that lasts only seconds and only occurs occasionally. I have not seen him i n the office for a while. He follows up at the [facility] and apparently, he has had last cardiac wor kup in 2016, which was negative including an echocardiogram and a Lexiscan. He denied PND, orthopnea , pedal edema, palpitations, or syncope. He was found on an MRI of the brain to have a cerebellopont ine mass about 15 mm in size, possibly a meningioma or acoustic neuroma. There is a plan to transfer him to [facility] or [facility] for further evaluation and treatment. Allergies: NONE. Review of Systems: Negative. Social History: Negative. Family History: Negative. Medications: Include Pravachol, Protonix, Imdur, Plavix, and Tenormin. Physical Examination: General: Mr. Goss was pleasant, alert and oriented x3. Vital Signs: Stable, afebrile, sinus rhythm. HEENT: Negative. Neck: Supple without any bruit, lymphadenopathy, JVD, or thyromegaly. Chest: Clear to auscultation and percussion. Cardiac: Revealed a regular rhythm and rate without any murmurs, gallops, or rubs. Abdomen: Benign. Extremities: Revealed no clubbing, cyanosis, or edema. Diagnostic Data: That were available to me include a normal EKG, normal labs. The MRI of the brain was stated earlier. Impression And Plan: 1.Loss of balance and ataxia and some incontinence, probably consistent with cerebellopontine mass. I agree with transferring the patient for neurosurgical workup. From my standpoint and cardiac pineda , he is clear to leave and certainly clear to have his surgery and workup as needed in [place]. 2.Dyslipidemia, well controlled. 3.Coronary artery disease, stable. Last stress test in 2016 was negative. His other problems inclu de hypertension and gastroesophageal reflux that is both of which are stable. I will sign off his ca se for now. NB/MODL Voice ID: [id number] Report ID: [id number]
== END 2018-05-27 17:07 | disposition short-term general hospital (02) | DRG 313 ==
LOC: ER 10:03 → ERHOLD 16:45 → 2ND 18:18 → OBSVTOIN 05-27 15:49
PROVIDERS: ADMIT Family Medicine; ATTEND Family Medicine
DX: R07.9 Chest pain, unspecified (principal); G91.2 (Idiopathic) normal pressure hydrocephalus; D33.3 Benign neoplasm of cranial nerves; D32.0 Benign neoplasm of cerebral meninges; I10 Essential (primary) hypertension; E78.5 Hyperlipidemia, unspecified; G47.33 Obstructive sleep apnea (adult) (pediatric); K21.9 Gastro-esophageal reflux disease without esophagitis; Z95.1 Presence of aortocoronary bypass graft; Z87.891 Personal history of nicotine dependence
CPT/HCPCS: 36415; 70450; 70551; 71045; 80048; 80061; 80076; 81003; 81015; 82550; 82553; 83735; 83880; 84439; 84443; 84484; 85025; 85610; 90670; 93005; 99285; G0009; G0378; J1650